=== PATIENT | male | born 1975 | race Caucasian/White ===

== ENCOUNTER 2023-01-28 08:34 | Emergency (ER) | payer OTHER, SELFPAY ==
--- NOTE | ~2023-01-28 | XR_ITS ---
EXAMINATION: XR FINGER, RIGHT CLINICAL INFORMATION: Second digit crush injury. COMPARISON: None available. TECHNIQUE: 3 views of the right hand second digit. FINDINGS: There is a comminuted, displaced fracture of the distal phalanx of the second digit. Deformity and swelling of the overlying soft tissues is seen. The remainder the visualized digits are intact. XR/XR finger RT min 2V IMPRESSION: Displaced comminuted fracture and deformity of the distal phalanx of the second digit consistent with given history of crush injury.
[2023-01-28 08:38] VITALS: BP 163/91; PULSE 69; RESP 19; TEMP 36.6; O2SAT 98; BMI 28.6
--- NOTE | 2023-01-28 09:19 | ED_ITS ---
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 He denies any weakness or loss of sensation, no other injury Related Data Previous Rx's Medication Instructions Recorded acetaminophen 500 mg tablet 1,000 mg PO QID PRN pain #30 tabs 01/28/23 cephalexin 500 mg tablet 500 mg PO QID 5 days #20 tabs 01/28/23 ibuprofen 600 mg tablet 600 mg PO Q6H PRN pain #20 tabs 01/28/23 oxycodone 5 mg tablet 5 mg PO Q6H PRN pain #20 tabs 01/28/23 Allergies Allergy/AdvReac Type Severity Reaction Status Date / Time No Known Allergies Allergy Unverified 05/07/20 15:02 [facility] Past Medical History Source: nursing notes reviewed Physical Exam Vital Signs: Vital Signs: Last Vital Signs Temp 98 F 01/28/23 08:38 Pulse 69 01/28/23 08:38 Resp 19 01/28/23 08:38 BP 163/91 H 01/28/23 08:38 Pulse Ox 98 01/28/23 08:38 O2 Del Method Room Air 01/28/23 08:38 BMI result Body Mass Index 28.6 General appearance no distress Head is normocephalic atraumatic Neck is supple Respiratory no distress The right hand exam the right index finger at the nail bed has the nail avulsed from the nail bed with a laceration at the base of the nail extending to both medial and lateral corners of the nail, as well there is a 2.5 cm vertical laceration over the proximal and mid phalanx, tendon function seems to be full and intact he has good strength on flexion at both PIP and D IP, there is sensation in the distal pulp, neurovascular intact Other extremities normal Course Course Course Narrative: X-ray shows comminuted fracture of the tuft of the distal phalanx Procedure note Cleansed and irrigated with normal saline both the palmar laceration of proximal and mid phalanx as well as the laceration of the nailbed Digital block is placed Suturing the nailbed laceration is closed with 450 nylon sutures at the lateral edges of the nail bed, and 3 absorbable 5 0 sutures are placed through the nail bed into the proximal skin holding the avulsed nail section in place The laceration on the palmar surface is closed with 5 0 nylon sutures, a small area with a full skin at the distal end of the laceration is left open Patient is given tetanus shot and prophylactic antibiotic Keflex for open fracture of distal phalanx A dressing and a splint are placed Patient will follow with hand and return any time for redness swelling any sign of infection He is leaving town for 4 days so cannot come back for wound check in 2-3 days Medications Administered Discontinued Medications Generic Name Dose Route Start Last Admin Trade Name Freq PRN Reason Stop Dose Admin Cephalexin HCl 500 mg 01/28/23 10:58 01/28/23 11:03 Cephalexin 500 Mg Capsule PO 01/28/23 10:59 500 mg ONCE ONE Administration Diphtheria/Tetanus/Acell Pertussis 0.5 ml 01/28/23 09:23 01/28/23 09:29 Diphth,Pertus(Acell),Tet Adult 0.5 Ml Syringe IM 01/28/23 09:24 0.5 ml .ONCE ONE Administration Lidocaine HCl 5 ml 01/28/23 09:23 01/28/23 09:32 Lidocaine Hcl 1 % Mpf 5 Ml Vial SUBCUT 01/28/23 09:24 5 ml ONCE ONE Administration Lidocaine HCl 5 ml 01/28/23 09:23 01/28/23 09:31 Lidocaine Hcl 1 % Mpf 5 Ml Vial SUBCUT 01/28/23 09:24 5 ml ONCE ONE Administration Discharge Plan Discharge Clinical Impression: Open fracture of tuft of distal phalanx of finger, Laceration of finger, Laceration of nail bed of finger Patient Disposition: Home, Self-Care Additional Instructions: You got a tetanus shot today We are prescribing Keflex antibiotic for 5 days to help prevent infection, but t his wound is high risk for infection Return any time for redness swelling increasing pain discharge from wound red stripe up arm any sign of infection any worse condition or any concerns Normally would return in 2-3 days for a wound check but as your out of town make sure you change the dressing every day and go to a local doctor if you detect any signs of infection Follow with hand doctor for further care of open tuft fracture with injury to the nail bed When taking antibiotics it is a good idea to take probiotics available [id number] in the vitamin section of any pharmacy to prevent antibiotic associated diarrhea Prescriptions: New cephalexin 500 mg tablet 500 mg PO QID 5 Days Qty: 20 0RF ibuprofen 600 mg tablet 600 mg PO Q6H PRN (Reason: pain) Qty: 20 0RF acetaminophen 500 mg tablet 1,000 mg PO QID PRN (Reason: pain) Qty: 30 0RF oxycodone 5 mg tablet 5 mg PO Q6H PRN (Reason: pain) Qty: 20 0RF Rx Instructions: Partial Fill upon patient request. Referrals: Elizabeth Bah MD [Physician] - (Right index finger crush injury with open distal phalanx fracture and nailbed injury) Interventions: ED Discharge Assessment Last Done: 01/28/23 11:04 Discharge Date/Time: 01/28/23 11:07
[2023-01-28] MEDS: Diphth,Pertus(ACell),Tet Adult 0.5 ML SYRINGE IM (09:29)
[2023-01-28] MEDS: Lidocaine HCl 1 % MPF 5 ML VIAL SUBCUT ×2 (09:31→09:32)
[2023-01-28] MEDS: cephALEXin 500 MG CAPSULE PO (11:03)
== END 2023-01-28 11:07 | disposition home or self-care (01) ==
PROVIDERS: Emergency Provider Emergency Medicine; PCP Internal Medicine
DX: S62.630B Displaced fracture of distal phalanx of right index finger, initial encounter for open fracture (principal); S61.310A Laceration without foreign body of right index finger with damage to nail, initial encounter; W23.1XXA Caught, crushed, jammed, or pinched between stationary objects, initial encounter; Y93.89 Activity, other specified; Y92.019 Unspecified place in single-family (private) house as the place of occurrence of the external cause; Y99.9 Unspecified external cause status
CPT/HCPCS: 12001; 73140; 90471; 90715; 99283; 99284

== ENCOUNTER → 2023-02-10 14:02 | Outpatient (BNVA) | payer OTHER, SELFPAY | PROVIDERS: PCP Internal Medicine; Visit Provider Physician Assistant ==

== ENCOUNTER → 2023-02-22 13:35 | Outpatient (BNVA) | payer OTHER, SELFPAY | PROVIDERS: PCP Internal Medicine; Visit Provider Physician Assistant ==

== ENCOUNTER 2023-03-30 09:11 | Outpatient (AMB) | payer OTHER, SELFPAY ==
--- NOTE | 2023-03-30 09:34 | MHC.OFFVIS ---
Intake Vital Signs 03/30/23 09:36 Height 5 ft 11 in Weight 205 lb BMI 28.6 Intake Visit Reasons: OV-f/u Right index finger Intake Note: Ronn is a 47 year old right hand dominant male who presents today for a follow up of right index finger fx, DOI 01/28/23. Xrays updated in office. Patient reports still having some pain, discomfort, and swelling. He states that his tip of the index finger there is some numbness and tingling. Allergies No Known Allergies Allergy (Verified 03/30/23 09:36) HPI OV-f/u Right index finger HPI Details 48-year-old right hand dominant male who returns to the office today for a follow-up of right index finger fracture, 01/28/23. He continues to have pain, discomfort and swelling in his index finger. He also c/o numbness and tingling at the tip of his right index finger. 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 Review of Systems Const All systems reviewed & are unremarkable except as noted in HPI and below Physical Exam Vital Signs: BMI result Body Mass Index 28.6 Const General: cooperative, healthy appearing, comfortable, no acute distress, well developed and alert Orientation/consciousness: patient oriented x3 HEENT Head: Yes normal to inspection, Yes normocephalic and Yes atraumatic Eyes General: appearance normal, both eyes and all related structures Resp Effort & Inspection: normal respiratory effort and able to speak in complete sentences Cardio Rate: regular rate Peripheral pulses: Peripheral pulses 2+ throughout GI Palpation (GI): Soft to palpation Skin Lesions: no lesions Rashes: no rashes Neuro General: patient oriented x3 Extrem Other: Right index finger: Skin is intact. He does have a well healed laceration over the volar aspect of the finger along the middle phalanx. He can activate FTP and FDS . He has full sensation throughout. Assessment & Plan Assessment & Plan (1) Closed fracture of tuft of distal phalanx of finger: Code(s): S62.639A - Displaced fracture of distal phalanx of unspecified finger, initial encounter for closed fracture (2) Injury of nail bed of finger: Code(s): S69.90XA - Unspecified injury of unspecified wrist, hand and finger(s), initial encounter Plan He will return to work and I do have concern with how his nail is growing being a new concern for an ingrown nail type issue. So, I would like him to meet with Dr. Bah in 4 weeks for a follow-up to see if he needs any type of procedure where she removes the nail or does something which helps the nail grow. He is content with this plan. Orders: Orders XR hand RT min 3V Today M79.641 - Pain in right hand Patient Instructions: Scribed for Eddie Frost PA-C, by Mike August biomedical equipment tech, on 03/30/2023 at 9:45 AM [facility]. Eddie Caban PA-C, have personally reviewed and agree with the information entered by the scribe. Coding Level of Care Code Est Pt Level 3 (06511) Diagnoses Closed fracture of tuft of distal phalanx of finger S62.639A Injury of nail bed of finger S69.90XA
[2023-03-30 09:36] VITALS: BMI 28.6
== END 2023-03-30 10:04 | disposition home or self-care (01) ==
PROVIDERS: PCP Internal Medicine; Visit Provider Physician Assistant
DX: S62.639A Displaced fracture of distal phalanx of unspecified finger, initial encounter for closed fracture (principal); S69.90XA Unspecified injury of unspecified wrist, hand and finger(s), initial encounter
CPT/HCPCS: 99213

== ENCOUNTER 2023-03-30 12:59 | Outpatient (REF) | payer OTHER, SELFPAY ==
--- NOTE | ~2023-03-30 | XR_ITS ---
EXAMINATION: XR HAND, RIGHT CLINICAL INFORMATION: Hand pain COMPARISON: Finger radiographs 01/28/2023 TECHNIQUE: PA, lateral, and oblique views of the right hand. FINDINGS: Again seen is a comminuted mildly displaced fracture of the tip of the second distal phalanx in improved alignment with nonunion. No bridging bony callus formation. Persistent flexion of the fifth PIP joint across multiple images. Joint spaces are otherwise maintained. No new acute fracture or dislocation. Soft tissues are unremarkable. XR/XR hand RT min 3V IMPRESSION: 1. Again seen is a comminuted mildly displaced fracture of the tip of the second distal phalanx in improved alignment with nonunion. No bridging bony callus formation. 2. Persistent flexion of the fifth PIP joint across multiple images.
== END 2023-03-30 13:00 | disposition home or self-care (01) ==
LOC: HO.HOSX 12:59
PROVIDERS: Visit Provider Physician Assistant
DX: M79.641 Pain in right hand (principal)
CPT/HCPCS: 73130

== ENCOUNTER 2023-05-10 08:11 | Outpatient (AMB) | payer OTHER, SELFPAY ==
--- NOTE | 2023-05-10 08:29 | MHC.OFFVIS ---
Intake Intake Visit Reasons: OV-f/u Right index finger Intake Note: Ronn is a 47 year old right hand dominant male who presents today for a follow up of right index finger fx, DOI 01/28/23. Xrays updated in office. Patient last seen with Aline Nolasco in office who referred patient to follow up and discuss nail growth. Patient is currently complaining of pain where nail is growing, due to nailing digging into skin. 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 He has been following with SURJIT Nolasco for this injury, which was managed non-operatively, and he returned to work last month. His primary complaint today is of his nail growth, and pain as he feels his nail digging into his skin. He says his motion is good and his laceration has healed well. He denies any numbness or tingling, but has slightly reduced sensation to his index finger. 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 Review of Systems Const All systems reviewed & are unremarkable except as noted in HPI and below Physical Exam Const General: cooperative, healthy appearing and no acute distress Orientation/consciousness: patient oriented x3 HEENT Head: Yes normocephalic and Yes atraumatic Eyes EOM: EOMs intact bilaterally Resp Effort & Inspection: normal respiratory effort and able to speak in complete sentences Cardio Jugular venous distension: no JVD Skin General skin exam: turgor normal Rashes: no rashes Neuro General: patient oriented x3 Extrem Other: Evaluation of Right Upper Extremity: The patient is alert, oriented, and in no acute distress The patient has a well-healed scar over the volar aspect of the right index finger arm extending out to the tip and dorsal aspect of the digit at the nail bed. He has good active flexion at the D IP and PIP joints and can actively bring his index finger closed to a fist and back into full extension He does have some decreased subjective sensation in the ulnar digital nerve distribution of the tip of the index finger with normal sensation to the radial digital nerve distribution. He does appear to have a new nail growing in that appears to just be making it to the distal edge of the nail bed. It looks like he may have an area of injury to the germinal matrix with no nail growth at the far radial aspect of the nail bed. There is also a small, 2 x 3 mm piece of nail attached to the distal nail plate in line where that new nail is not growing. The nail itself is not particularly tender. The new nail appears to have good here ends to the underlying sterile matrix. Radiographs: 3 views of the right hand, with attention to the index finger, were taken and viewed by me today in clinic. They show a distal phalanx tuft fracture, partially healed with fibrous non-union and satisfactory alignment. No involvement of the D IP joint. Psych Appearance: grossly normal Affect: normal affect Attitude: cooperative Assessment & Plan Assessment & Plan (1) Injury of nail bed of finger: Code(s): S69.90XA - Unspecified injury of unspecified wrist, hand and finger(s), initial encounter (2) Closed fracture of tuft of distal phalanx of finger: Code(s): S62.639A - Displaced fracture of distal phalanx of unspecified finger, initial encounter for closed fracture Plan Assessment & Plan: 1. Right index finger distal phalanx tuft fracture DOI: 01/28/23 Partially healed with fibrous non-union Nontender and has gone on to heal well. 2. Right index finger complex laceration involving the nail bed with a nail bed injury DOI: 01/28/23 Good active finger range of motion. New nail appears to be growing in and adhering well to the sterile matrix Small area of affected germinal matrix without evidence of nail growth at the radial edge of the nail. I educated him about this condition All in all I think he is doing pretty well. His injury was only ~3 months ago and I think the most appropriate course is to allow his nail more time to grow in fully If he continues to have concerns or difficulties in the next few months he can follow up to re-evaluate the nail bed and nail growth.. He will continue to work on finger ROM exercises at home Otherwise he will follow up prn. Scribed for Elizabeth Bah MD by Anthony Piña, medical center manager, on 05/10/23 at 9:40 AM, EST. Orders: Orders XR hand RT min 3V Today M79.641 - Pain in right hand Coding Level of Care Code Est Pt Level 3 (97558) Diagnoses Injury of nail bed of finger S69.90XA Closed fracture of tuft of distal phalanx of finger S62.639A
== END 2023-05-10 09:46 | disposition home or self-care (01) ==
PROVIDERS: PCP Internal Medicine; Visit Provider Orthopaedic Surgery
DX: S62.639A Displaced fracture of distal phalanx of unspecified finger, initial encounter for closed fracture (principal); S61.310A Laceration without foreign body of right index finger with damage to nail, initial encounter; S69.90XA Unspecified injury of unspecified wrist, hand and finger(s), initial encounter
CPT/HCPCS: 99213

== ENCOUNTER 2023-05-10 11:28 | Outpatient (REF) | payer OTHER, SELFPAY ==
--- NOTE | ~2023-05-10 | XR_ITS ---
EXAMINATION: XR HAND, RIGHT CLINICAL INFORMATION: Pain right hand. COMPARISON: None available. TECHNIQUE: PA, lateral, and oblique views of the right hand. FINDINGS: The tuft of the 2nd distal phalanx appears fragmented. The small osseous fragments appear corticated. The remaining bones, joints and soft tissues are unremarkable. XR/XR hand RT min 3V IMPRESSION: Fragmented appearance of the soft tissues of the second distal phalanx. 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
== END 2023-05-10 11:29 | disposition home or self-care (01) ==
LOC: HO.HOSX 11:28
PROVIDERS: Visit Provider Orthopaedic Surgery
DX: S69.91XA Unspecified injury of right wrist, hand and finger(s), initial encounter (principal); S62.630A Displaced fracture of distal phalanx of right index finger, initial encounter for closed fracture
CPT/HCPCS: 73130